=== PATIENT | female | born 1995 | race Caucasian/White ===

== ENCOUNTER 2016-05-11 19:16 | Emergency (ER) | payer BC, OTHER ==
[2016-05-11] MEDS ORDERED: NS 1,000 ML IV ONE (20:06)
[2016-05-11] MEDS ORDERED: ONDANSETRON 4 MG/2 ML VIAL IVP ONE (20:06)
--- NOTE | 2016-05-11 20:09 | EDPHY ---
H & P Stated Complaint: n/v Time Seen by Provider: 05/11/16 19:57 HPI/ROS: CHIEF COMPLAINT: Nausea, vomiting and diarrhea HISTORY OF PRESENT ILLNESS: Patient is a 20-year-old healthy female who comes to the emergency department complaining of nausea, vomiting and diarrhea for the last 3 days. She has not had a fever. she feels dehydrated. She complains of abdominal cramping but no pain or tenderness. She has not traveled recently. She has not had any unfiltered water. She gives a history as well of having intermittent episodes of vomiting once or twice per month over the last 6 months. They seem to take her by surprise. She initially thought they were due to anxiety but states that she takes anxiety medication is well controlled. She has not had any foreign travel. She states however that this episode seems different and is lasting longer. Her friend states that she has been exposed to other people with similar symptoms. REVIEW OF SYSTEMS: Constitutional: denies: chills, fever, recent illness, recent injury EENTM: denies: blurred vision, double vision, nose congestion Respiratory: denies: cough, shortness of breath Cardiac: denies: chest pain, irregular heart rate, lightheadedness, palpitations Gastrointestinal/Abdominal: See HPI Genitourinary: denies: dysuria, frequency, hematuria, pain Musculoskeletal: denies: joint pain, muscle pain Skin: denies: lesions, rash, jaundice, bruising Neurological: denies: headache, numbness, paresthesia, tingling, dizziness, weakness Hematologic/Lymphatic: denies: blood clots, easy bleeding, easy bruising Immunologic/allergic: denies: HIV/AIDS, transplant EXAM: GENERAL: Well-appearing, well-nourished and in no acute distress. HEAD: Atraumatic, normocephalic. EYES: Pupils equal round and reactive to light, extraocular movements intact, sclera anicteric, conjunctiva are normal. ENT: TMs normal, nares patent, oropharynx clear without exudates. Moist mucous membranes. NECK: Normal range of motion, supple without lymphadenopathy or JVD. LUNGS: Breath sounds clear to auscultation bilaterally and equal. No wheezes rales or rhonchi. HEART: Regular rate and rhythm without murmurs, rubs or gallops. ABDOMEN: Soft, nontender, normoactive bowel sounds. No guarding, no rebound. No masses appreciated. BACK: No CVA tenderness, no spinal tenderness, step-offs or deformities EXTREMITIES: Normal range of motion, no pitting or edema. No clubbing or cyanosis. NEUROLOGICAL: Cranial nerves II through XII grossly intact. Normal speech, normal gait. 5/5 strength, normal movement in all extremities, normal sensation PSYCH: Normal mood, normal affect. SKIN: Warm, dry, normal turgor, no visible rashes or lesions. Source: Patient Exam Limitations: No limitations - Personal History LMP (Females 10-55): 1-7 Days Ago Current Tetanus/Diphtheria Vaccine: Yes Current Tetanus Diphtheria and Acellular Pertussis (TDAP): Yes - Medical/Surgical History Hx Asthma: Yes Hx Chronic Respiratory Disease: No Hx Diabetes: No Hx Cardiac Disease: No Hx Renal Disease: No Hx Cirrhosis: No Hx Alcoholism: No Hx HIV/AIDS: No Hx Splenectomy or Spleen Trauma: No Other PMH: mood disorder, depresssion, anxiety. hypothyroid. asthma - Family History Significant Family History: No pertinent family hx - Social History Smoking Status: Never smoked Alcohol Use: Sober Drug Use: None Constitutional: Initial Vital Signs Temperature (C) 36.8 C 05/11/16 19:21 Heart Rate 82 05/11/16 19:21 Respiratory Rate 16 05/11/16 19:21 Blood Pressure 118/76 05/11/16 19:21 O2 Sat (%) 96 05/11/16 19:21 O2 Delivery Mode Room Air Allergies/Adverse Reactions: No Known Allergies Allergy (Unverified 05/11/16 19:19) Home Medications: Medication Instructions Recorded Duloxetine HCl 60 mg PO DAILY #30 capsule. 06/30/15 Levothyroxine Sodium 112 mcg PO DAILY #30 tablet 06/30/15 lamoTRIgine [LamICTAL 100 MG (*)] 200 mg PO HS #60 tab 06/30/15 Ondansetron Odt [Zofran Odt 4 mg 4 mg PO Q4 PRN #20 tab 05/11/16 (RX)] traZODone 05/11/16 Medical Decision Making ED Course/Re-evaluation: 9:15 p.m. the patient is feeling better. She is no longer nauseous but does have occasional cramping. I will treat her with Toradol. Otherwise she is eager to go home. Her lab work is reassuring. Her abdominal exam is benign. She declines further workup or testing at this time. I will refer her to gastroenterology. Differential Diagnosis: Partial list of the Differential diagnosis considered include but were not limited to; gastroenteritis, viral syndrome, food poisoning, irritable bowel disease and although unlikely based on the history and physical exam, I also considered obstruction, ischemia, appendicitis, ovarian cyst, urinary tract infection. I discussed these differential diagnoses and the plan with the patient as well as the usual and expected course. The patient understands that the diagnosis is provisional and that in medicine we are not always correct and that further workup is often warranted. Usual and customary warnings were given. All of the patient's questions were answered. The patient was instructed to return to the emergency department should the symptoms at all worsen or return, otherwise to followup with the physician as we discussed. - Data Points Laboratory Results: Laboratory Results 05/11/16 20:30 05/11/16 20:30 Medications Given: Discontinued Medications Sodium Chloride (Ns) 1,000 mls @ 0 mls/hr IV ONCE ONE PRN Reason: Wide Open Stop: 05/11/16 20:07 Last Admin: 05/11/16 20:34 Dose: 1,000 mls Ketorolac Tromethamine (Toradol) 30 mg IVP EDNOW ONE Stop: 05/11/16 21:19 Last Admin: 05/11/16 21:25 Dose: 30 mg Metoclopramide HCl (Reglan Injection) 10 mg IVP EDNOW ONE Stop: 05/11/16 20:51 Last Admin: 05/11/16 20:53 Dose: 10 mg Ondansetron HCl (Zofran) 4 mg IVP EDNOW ONE Stop: 05/11/16 20:07 Last Admin: 05/11/16 20:34 Dose: 4 mg Ondansetron HCl (Zofran Odt 4 Mg Prepack#2) 1 btl TAKEHOME EDNOW ONE Stop: 05/11/16 21:19 Last Admin: 05/11/16 21:57 Dose: 1 btl Departure - Departure Disposition: Home, Routine, Self-Care Clinical Impression: Acute gastroenteritis Abdominal pain Qualifiers: Abdominal location: upper abdomen, unspecified Qualified Code(s): R10.10 - Upper abdominal pain, unspecified Condition: Fair Instructions: Ondansetron (By mouth), Gastroenteritis (ED) Referrals: NONE *PRIMARY CARE P,. [Primary Care Provider] - As per Instructions Yasmany Morrow MD [[facility] – [place] Primary Care Provider] - As per Instructions Prescriptions: Ondansetron Odt [Zofran Odt 4 mg (RX)] 4 mg PO Q4 PRN #20 tab PRN Reason: Nausea & Vomiting
[2016-05-11] MEDS ORDERED: METOCLOPRAMIDE 10 MG/2 ML VIAL IVP ONE (20:50)
[2016-05-11 20:52] LABS: % IMMATURE GRANULYOCYTES 0.1 % (0.0-1.1); ABSOLUTE IMMATURE GRANULOCYTES 0.01 10^3/uL (0.00-0.10); ADD DIFF? NO; ADD MORPH? NO; ADD SCAN? NO; ATYPICAL LYMPHOCYTE FLAG 0 (0-99); FRAGMENT RBC FLAG 0 (0-99); HEMATOCRIT 43.1 % (38.0-47.0); HEMOGLOBIN 15.2 g/dL (12.6-16.3); LEFT SHIFT FLG 0 (0-99); LIPEMIA HEMOLYSIS FLAG 90 (0-99); MEAN CELL HEMOGLOBIN 29.3 pg (27.9-34.1); MEAN CELL HEMOGLOBIN CONCENTR. 35.3 g/dL (32.4-36.7); MEAN PLATELET VOLUME 8.9 fL (8.7-11.7); PLATELET CLUMPS FLAG 0 (0-99); PLATELET COUNT 269 10^3/uL (150-400); RED BLOOD CELL COUNT 5.19 10^6/uL (4.18-5.33); RED CELL DISTRIBUTION WIDTH 12.8 % (11.5-15.2)
[2016-05-11 20:59] LABS: ALANINE AMINOTRANSFERASE 28 IU/L (9-52); ALBUMIN 4.8 g/dL (3.5-5.0); ALKALINE PHOSPHATASE 46 IU/L (38-126); ANION GAP 13 mEq/L (8-16); ASPARTATE AMINOTRANSFERASE 22 IU/L (14-46); BILIRUBIN,TOTAL 0.9 mg/dL (0.1-1.4); BILIRUBIN-CONJUGATED 0.4 mg/dL (0.0-0.5); BILIRUBIN-UNCONJUGATED 0.5 mg/dL (0.0-1.1); CALCIUM 9.8 mg/dL (8.5-10.4); CARBON DIOXIDE 22 mEq/l (22-31); CHLORIDE 106 mEq/L (97-110); CREATININE 0.8 mg/dL (0.6-1.0); GLOMERULAR FILTRATION RATE > 60; GLUCOSE 88 mg/dL (70-100); POTASSIUM 3.8 mEq/L (3.5-5.2); SODIUM 141 mEq/L (134-144); TOTAL PROTEIN 7.1 g/dL (6.3-8.2)
[2016-05-11] MEDS ORDERED: ONDANSETRON 4MG PREPACK#2 BTL TAKEHOME ONE (21:18)
[2016-05-11] MEDS ORDERED: KETOROLAC 30 MG/1 ML SDV IVP ONE (21:18)
[2016-05-11 21:59] VITALS: BP 108/57; PULSE 64; RESP 20; TEMP 97.9; O2SAT 96
== END 2016-05-11 21:58 | disposition home or self-care (01) ==
DX: K52.9 Noninfective gastroenteritis and colitis, unspecified (principal); J45.909 Unspecified asthma, uncomplicated
CPT/HCPCS: 96374; J1885; J2405; J2765

== ENCOUNTER 2018-02-04 16:27 | Emergency (ER) | payer OTHER ==
[2018-02-04] MEDS ORDERED: KETOROLAC 30 MG/1 ML SDV IVP ONE (16:47)
[2018-02-04] MEDS ORDERED: FAMOTIDINE 20 MG/NACL 50 ML IV ONE (16:47)
[2018-02-04] MEDS ORDERED: NS 1,000 ML IV ONE ×2 (16:47)
[2018-02-04] MEDS ORDERED: ONDANSETRON 4 MG/2 ML VIAL IVP ONE (16:47)
[2018-02-04] MEDS ORDERED: ACETAMINOPHEN 500 MG TAB PO ONE (16:48)
[2018-02-04] MEDS ORDERED: OSELTAMIVIR PHOSPHATE 75 MG CAP PO ONE (16:48)
--- NOTE | 2018-02-04 16:49 | EDPHY ---
H & P Time Seen by Provider: 02/04/18 16:35 HPI/ROS: HPI Flu-like symptoms. 22-year-old female by private vehicle. She presents the emergency department with complaint of fever, chills, muscle aches and joint aches, nausea with several episodes of nonbilious nonbloody vomiting, fatigue and a feeling of dehydration. Onset at about 10:00 a.m. This morning. ROS: Constitutional: As above. Eyes: No discharge. No changes in vision. ENT: No sore throat. No nasal congestion or rhinorrhea. Respiratory: No cough. No shortness of breath. Cardiac: No chest pain, no palpitations. Gastrointestinal: No abdominal pain, as above, no diarrhea. Genitourinary: No hematuria. No dysuria or increased frequency with urination. Musculoskeletal: As above. Skin: No rashes. Neurological: No headache. No focal weakness or altered sensation. Past medical history: Mood disorder, depression, hypothyroid, anxiety, asthma. Social history: Nonsmoker. No alcohol. Here by herself. Physical Exam: General Appearance: Alert, pleasant, no distress. This patient is responding to questions appropriately and in full sentences. This patient appears well- hydrated and well-nourished. Eyes: Pupils equal and round no pallor or injection. No lid edema, erythema or injection. ENT, Mouth: Mucous membranes are moist. The pharyngeal tissues are unremarkable. No edema or swelling. No asymmetry suggestive of abscess. No erythema or exudates. No voice changes. No stridor. No significant cervical, submental, submandibular lymphadenopathy. Respiratory: There are no retractions, lungs are clear to auscultation with good air movement bilaterally. Cardiovascular: Regular rate and rhythm. No murmur. Gastrointestinal: Abdomen is soft and nontender, no masses, bowel sounds normal. No focal tenderness at McBurney's point. No Marquez sign. Neurological: Motor sensory function is grossly intact. Cranial nerves are normal. Gait is normal. Skin: Warm and dry, no rashes. Musculoskeletal: Neck is supple and nontender. No pain on flexion of the neck. Extremities are symmetrical. All joints range without pain or impingement. Psychiatric: No agitation. No depression. Database: EKG: Imaging: Procedures: Emergency department course: Triage vital signs reviewed. She is tachycardic at 190. Temperature is 37.4 degrees. Vital signs otherwise within normal limits. The patient states that she feels very dehydrated. IV will be placed. She will be given 2 L of IV normal saline over the next 1-2 hours. Initial medications will include 30 mg of IV Toradol, g of oral Tylenol, 75 mg of Tamiflu, 4 mg of Zofran and 20 mg of IV Pepcid. She has no contraindications to NSAIDs. No history of renal dysfunction or peptic ulcer disease. 5:40 p.m., the patient was re-evaluated, resting comfortably at this time. She states that she is feeling much better. She is about long-term through her fluids. She feels comfortable being discharged from her IV fluids have finished. I discussed supportive care with her. Follow-up and return to emergency department precautions reviewed with her. All of her questions were answered. She was discharged from the emergency department in good condition. Differential Diagnosis: The differential diagnosis on this patient includes but is not limited to influenza, viral syndrome. Serious bacterial infection, surgical etiology of vomiting unlikely. This represents a partial list of diagnoses considered. These considerations are based on history, physical exam, past history, reassessment and diagnostic testing. Smoking Status: Never smoked Constitutional: Initial Vital Signs Temperature (C) 37.4 C 02/04/18 16:31 Heart Rate 109 H 02/04/18 16:31 Respiratory Rate 16 02/04/18 16:31 Blood Pressure 117/72 02/04/18 16:31 O2 Sat (%) 94 02/04/18 16:31 O2 Delivery Mode Room Air Allergies/Adverse Reactions: No Known Allergies Allergy (Unverified 02/04/18 16:31) Home Medications: Medication Instructions Recorded Duloxetine HCl 60 mg PO DAILY #30 capsule. 06/30/15 Levothyroxine Sodium 112 mcg PO DAILY #30 tablet 06/30/15 lamoTRIgine [LamICTAL 100 MG (*)] 200 mg PO HS #60 tab 06/30/15 Ondansetron Odt [Zofran Odt 4 mg 4 mg PO Q4 PRN #20 tab 05/11/16 (RX)] traZODone 05/11/16 Ondansetron Odt [Zofran Odt 4 mg 4 mg PO Q4PRN PRN #10 tab 02/04/18 (*)] Oseltamivir Phosphate [Tamiflu 75 75 mg PO BID #10 cap 02/04/18 mg (RX)] Medical Decision Making - Data Points Medications Given: Discontinued Medications Acetaminophen (Tylenol) 1,000 mg PO EDNOW ONE Stop: 02/04/18 16:49 Last Admin: 02/04/18 17:06 Dose: 1,000 mg Sodium Chloride (Ns) 1,000 mls @ 0 mls/hr IV EDNOW ONE; Wide Open PRN Reason: Protocol Stop: 02/04/18 16:48 Last Admin: 02/04/18 17:05 Dose: 1,000 mls Sodium Chloride (Ns) 1,000 mls @ 0 mls/hr IV EDNOW ONE; Wide Open PRN Reason: Protocol Stop: 02/04/18 16:48 Last Admin: 02/04/18 17:05 Dose: 1,000 mls Famotidine/Sodium Chloride (Pepcid 20 Mg (Premix)) 50 mls @ 200 mls/hr IV EDNOW ONE Stop: 02/04/18 17:01 Last Admin: 02/04/18 17:06 Dose: 50 mls Ketorolac Tromethamine (Toradol) 30 mg IVP EDNOW ONE Stop: 02/04/18 16:48 Last Admin: 02/04/18 17:06 Dose: 30 mg Ondansetron HCl (Zofran) 4 mg IVP EDNOW ONE Stop: 02/04/18 16:48 Last Admin: 02/04/18 17:05 Dose: 4 mg Oseltamivir Phosphate (Tamiflu) 75 mg PO EDNOW ONE Stop: 02/04/18 16:49 Last Admin: 02/04/18 17:06 Dose: 75 mg Departure - Departure Disposition: Home, Routine, Self-Care Clinical Impression: Influenza Condition: Good Instructions: Influenza (ED) Additional Instructions: Read and follow provided instructions. Follow-up with your primary care physician on Monday if possible or after the holiday for re-evaluation as discussed. You can start taking ibuprofen tomorrow. Ibuprofen dosin mg every 6 hours with meals for the next 3 days only. Take only as needed for pain. Take medication as prescribed for nausea and flu. You can take a g of Tylenol for fever control every 8 hr for the next 2-3 days. Keep well hydrated. Drink lots of fluids. The best fluid to drink is Gatorade mixed with water in a 1-1 dilution. Return to the emergency department for worsening symptoms, abdominal pain, vomiting and inability to keep fluids down despite medications, or other serious concerns. Referrals: NONE *PRIMARY CARE P,. [Primary Care Provider] - As per Instructions Stand Alone Forms: Work Excuse Prescriptions: Ondansetron Odt [Zofran Odt 4 mg (*)] 4 mg PO Q4PRN PRN #10 tab PRN Reason: For Nausea & Vomiting Oseltamivir Phosphate [Tamiflu 75 mg (RX)] 75 mg PO BID #10 cap
[2018-02-04 18:31] VITALS: BP 100/58
== END 2018-02-04 18:30 | disposition home or self-care (01) ==
DX: J11.1 Influenza due to unidentified influenza virus with other respiratory manifestations (principal); E86.9 Volume depletion, unspecified
CPT/HCPCS: 96374; J1885; J2405